=== PATIENT | female | born 2000 | race American Indian/Alaskan Native ===

== ENCOUNTER 2021-05-05 10:16 | Outpatient (CLI) | payer OTHER ==
[2021-05-05 11:01] LABS: Basophils % (Auto) 0.4 % (0.0-1.8); Eosinophils % (Auto) 0.6 % (0.0-4.3); Hematocrit 39.3 % (30.3-42.9); Hemoglobin 13.1 gm/dl (10.1-14.3); Lymphocytes % (Auto) 20.4 % (13.4-35.0); Mean Corpuscular HGB Conc 33 % (30-34); Mean Corpuscular Volume 90 fl (79-97); Monocytes # (Auto) 0.3 K/mm3 (0.0-0.8); Monocytes % (Auto) 5.8 % (0.0-7.3); Platelet Count 256 K/mm3 (140-440); Red Blood Count 4.38 M/mm3 (3.65-5.03); Red Cell Distribution Width 15.8 % (13.2-15.2)
[2021-05-05 11:22] LABS: Alanine Aminotransferase 11 units/L (7-56); Albumin 3.9 g/dL (3.9-5); BUN/Creatinine Ratio 9; Blood Urea Nitrogen 7 mg/dL (7-17); Calcium 9.4 mg/dL (8.4-10.2); Hemolysis Index 2
[2021-05-05 11:38] LABS: Erythrocyte Sedimentation Rate 34 mm/Hr (0-20)
[2021-05-08 05:39] LABS: Albumin 3.7 g/dL (3.8-4.8); Gamma Globulin 1.5 g/dL (0.8-1.7)
[2021-05-08 12:27] LABS: ANA Screen, IFA Negative (Negative)
[2021-05-08 16:15] LABS: Vitamin D, 25-OH, D2 <4 ng/mL
== END 2021-05-05 10:17 | disposition home or self-care (01) ==
LOC: LAB 10:16
PROVIDERS: ATTEND Specialist
DX: G61.9 Inflammatory polyneuropathy, unspecified (principal)
CPT/HCPCS: 36415; 80053; 82306; 82607; 83036; 83921; 84165; 84443; 85025; 85652; 86038; 86334; 86592

== ENCOUNTER 2021-08-19 11:00 | Outpatient (CLI) | payer OTHER | END 2021-08-19 11:01 | disposition home or self-care (01) | LOC: SLR 11:00 | PROVIDERS: ATTEND Specialist | DX: G47.30 Sleep apnea, unspecified (principal) | CPT/HCPCS: 95810 ==

== ENCOUNTER 2022-03-15 22:24 | Emergency (ER) | payer SELFPAY ==
[2022-03-15 22:57] VITALS: BP 120/75
[2022-03-16] MEDS ORDERED: IBUPROFEN 800 MG TAB PO ONE (03:50)
--- NOTE | 2022-03-16 04:35 | Emergency Department Report ---
ED General Adult HPI - General Chief complaint: Chest Pain Stated complaint: CHEST PAIN/UPPER LEFT ARM PAIN Time Seen by Provider: 03/16/22 03:38 Source: patient Mode of arrival: Ambulatory Limitations: No Limitations - History of Present Illness Initial comments: Patient is a 22-year-old female who presents with generalized body aches times 1 week. Patient states cough nonproductive and intermittent. Symptoms are exacerbated by viral exposure. Symptoms are relieved by nothing tried. Patient denies nausea or vomiting no abdominal pain at this time. Chest pain described as achy exacerbated by coughing and movement. There is no shortness of breath no dizziness no lightheadedness. No diaphoresis or nausea or vomiting. - Related Data Home Medications Medication Instructions Recorded Confirmed Last Taken Cyclobenzaprine [Flexeril] 10 mg PO TID PRN 03/16/21 03/16/21 Unknown Ibuprofen [Motrin] 800 mg PO Q8HR PRN 03/16/21 03/16/21 Unknown Naproxen [Naprosyn] 500 mg PO Q8HR 03/16/21 03/16/21 Unknown Allergies Allergy/AdvReac Type Severity Reaction Status Date / Time No Known Allergies Allergy Verified 03/16/21 09:36 ED Review of Systems ROS: Stated complaint: CHEST PAIN/UPPER LEFT ARM PAIN Other details as noted in HPI Constitutional: denies: chills, fever Eyes: denies: eye pain, eye discharge, vision change ENT: congestion. denies: ear pain, throat pain Respiratory: cough. denies: shortness of breath, wheezing Cardiovascular: chest pain. denies: palpitations, dyspnea on exertion, paroxysmal nocturnal dyspnea Endocrine: no symptoms reported Gastrointestinal: denies: abdominal pain, nausea, diarrhea Genitourinary: denies: urgency, dysuria, discharge Musculoskeletal: as per HPI Skin: denies: rash, lesions Neurological: as per HPI. denies: headache, weakness, numbness, paresthesias, confusion, vertigo Psychiatric: denies: anxiety, depression Hematological/Lymphatic: denies: easy bleeding, easy bruising ED Past Medical Hx - Past Medical History Previous Medical History?: Yes Additional medical history: post concussion syndrome, anxiety - Surgical History Past Surgical History?: No - Social History Smoking Status: Never Smoker Substance Use Type: None - Medications Home Medications: Home Medications Medication Instructions Recorded Confirmed Last Taken Type Cyclobenzaprine [Flexeril] 10 mg PO TID PRN 03/16/21 03/16/21 Unknown History Ibuprofen [Motrin] 800 mg PO Q8HR PRN 03/16/21 03/16/21 Unknown History Naproxen [Naprosyn] 500 mg PO Q8HR 03/16/21 03/16/21 Unknown History ED Physical Exam - General Limitations: No Limitations General appearance: alert, in no apparent distress - Head Head exam: Present: atraumatic, normocephalic - Eye Eye exam: Present: PERRL, EOMI Pupils: Present: normal accommodation - ENT ENT exam: Present: mucous membranes moist, TM's normal bilaterally - Neck Neck exam: Present: normal inspection, full ROM. Absent: tenderness, lymphadenopathy - Respiratory Respiratory exam: Present: normal lung sounds bilaterally, chest wall tenderness. Absent: respiratory distress, wheezes, rales, rhonchi, stridor - Cardiovascular Cardiovascular Exam: Present: regular rate, normal rhythm, normal heart sounds. Absent: systolic murmur, diastolic murmur, rubs, gallop - GI/Abdominal GI/Abdominal exam: Present: soft, normal bowel sounds. Absent: distended, tenderness, guarding, rebound, rigid, bruit, hernia - Rectal Rectal exam: Present: deferred - Extremities Exam Extremities exam: Present: normal inspection, full ROM, tenderness, normal capillary refill, other - Back Exam Back exam: Present: normal inspection, full ROM. Absent: tenderness, CVA tenderness (R), CVA tenderness (L) - Neurological Exam Neurological exam: Present: alert, oriented X3, CN II-XII intact, normal gait, reflexes normal. Absent: motor sensory deficit - Expanded Neurological Exam Expanded Patient oriented to: Present: person, place, time Motor strength exam: RUE: 5, LUE: 5, RLE: 5, LLE: 5 Best Eye Response ([place]uck): (4) open spontaneously Best Motor Response ([place]): (6) obeys commands Best Verbal Response (Chuck): (5) oriented Chuck Total: 15 - Psychiatric Psychiatric exam: Present: normal affect, normal mood - Skin Skin exam: Present: warm, dry, intact, normal color. Absent: rash ED Course Vital Signs 03/15/22 22:56 Temperature 97.9 F Pulse Rate 83 Respiratory 16 Rate Blood Pressure 120/75 O2 Sat by Pulse 100 Oximetry ED Medical Decision Making - Medical Decision Making Patient now refuses x-ray had medications ordered in ED. Patient advises she wants to go home. Patient signed out AMA patient is currently alert oriented x3 patient demonstrates decision-making capacity. Patient has had opportunity ask and I have answered all questions to her satisfaction including risk of signing out AMA, chest pain. Critical care attestation.: If time is entered above; I have spent that time in minutes in the direct care of this critically ill patient, excluding procedure time. ED Disposition Clinical Impression: Chest pain Qualifiers: Chest pain type: unspecified Qualified Code(s): R07.9 - Chest pain, unspecified Disposition: 07 LEFT AGAINST MEDICAL ADVICE Is pt being admited?: No Does the pt Need Aspirin: No Condition: Undetermined Instructions: Nonspecific Chest Pain, Adult Forms: AMA Form Time of Disposition: 05:00
--- NOTE | 2022-03-16 11:02 | Electrocardiograph Report ---
[facility] Test Date: 2022-03-15 Test Time: 22:48:29 Pat Name: MARIO RAMOS Department: Room: Gender: F [employer]: TECH : 2000 Requested By: KRISTA SAWANT Order Number: [id number] Reading MD: Ld Lazar Measurements Intervals [place] Rate: 87 P: 55 [place]: 141 QRS: 22 QRSD: 70 T: 28 QT: 362 QTc: 435 Interpretive Statements Sinus rhythm No previous ECG available for comparison Electronically Signed On 03-16-2022 11:01:24 EDT by Ld Lazar
== END 2022-03-16 07:00 | disposition left against medical advice (07) ==
LOC: ED 22:24
DX: R07.9 Chest pain, unspecified (principal)
CPT/HCPCS: 93005; 99282